=== PATIENT | male | born 1980 | race Caucasian/White ===

== ENCOUNTER 2022-03-27 10:36 | Emergency (ER) | payer OTHER ==
[2022-03-27] MEDS ORDERED: Sodium Chloride 0.9% 10 ML Syringe FLUSH PRN (10:39)
[2022-03-27] MEDS ORDERED: Lidocaine/EPINEPHrine/Tetracaine Soln 1 ML TOP ONE (11:39)
[2022-03-27 12:20] LABS: ESTIMATED GFR 115 mL/min (>60)
== END 2022-03-27 13:00 ==
LOC: JD.ED 10:36
DX: S06.5X1A Traumatic subdural hemorrhage with loss of consciousness of 30 minutes or less, initial encounter (principal); S06.6X1A Traumatic subarachnoid hemorrhage with loss of consciousness of 30 minutes or less, initial encounter; S01.101A Unspecified open wound of right eyelid and periocular area, initial encounter; S01.01XA Laceration without foreign body of scalp, initial encounter; W18.09XA Striking against other object with subsequent fall, initial encounter
CPT/HCPCS: 12001; 36415; 70450; 72125; 80053; 80307; 83605; 83690; 85025; 85610; 85730; 99284; J3490